=== PATIENT | male | born 1970 | race Caucasian/White ===

== ENCOUNTER 2020-04-29 10:23 | Inpatient (IN) | payer OTHER ==
[~2020-04-29] VITALS: Ht 203.2 cm; Wt 128.9 kg
[2020-04-29 10:43] LABS: BASOPHILS % (AUTO) 0.6 % (0.0-5.0); EOSINOPHILS % (AUTO) 2.2 % (0.0-8.0); HEMATOCRIT 48.2 % (42-54); MEAN CORPUSCULAR HEMOGLOBIN 30.2 pg (27.0-33.0); MEAN CORPUSCULAR HGB CONC 35.1 g/dL (32.0-36.0); MEAN CORPUSCULAR VOLUME 86.2 fL (79-99); MONOCYTES % (AUTO) 7.2 % (3.0-13.0); NEUTROPHILS % (AUTO) 70.9 % (40.0-77.0); PLATELET COUNT (AUTO) 254 K/uL (130-400); RED BLOOD CELL COUNT(AUTO) 5.59 MIL/uL (4.50-6.20); RED CELL DISTRIBUTION WIDTH 12.3 % (11.0-15.5); WHITE BLOOD COUNT (AUTO) 10.6 K/uL (4.8-10.8)
[2020-04-29] MEDS ORDERED: ASPIRIN 81MG CHEW TAB ONE (10:47)
[2020-04-29 11:06] LABS: APPEARANCE,URINE Clear (CLEAR); BILIRUBIN,URINE Negative (NEGATIVE); COLOR,URINE Yellow (YELLOW); GLUCOSE, URINE (UA) Negative (NEGATIVE); KETONES,URINE Negative (NEGATIVE); LEUKOCYTE ESTERASE ,URINE Negative (NEGATIVE); NITRATE,URINE Negative (NEGATIVE); OCCULT BLOOD,URINE Negative (NEGATIVE); PROTEIN,URINE Negative (NEGATIVE); UROBILINOGEN,URINE 0.2 mg/dL (0.2-1.0)
[2020-04-29 11:14] LABS: AMPHET/METH SCREEN,URINE NEGATIVE (NEGATIVE); BARBITURATE SCREEN, URINE NEGATIVE (NEGATIVE); BENZODIAZEPINES SCREEN,URINE NEGATIVE (NEGATIVE); CANNABINOID SCREEN,URINE NEGATIVE (NEGATIVE); COCAINE SCREEN,URINE NEGATIVE (NEGATIVE); OPIATE SCREEN,URINE NEGATIVE (NEGATIVE); PHENCYCLIDINE SCREEN,URINE NEGATIVE (NEGATIVE)
[2020-04-29 11:16] LABS: CREATININE 1.1 mg/dL (0.5-1.5); POTASSIUM 3.6 mmol/L (3.5-5.1)
[2020-04-29] MEDS ORDERED: LABETALOL 20MG SYG IV ONE (11:20)
[2020-04-29] MEDS ORDERED: NICARDIPINE 100 MG/100ML IV SCH ×2 (11:30)
[2020-04-29 12:35] LABS: CHOLESTEROL 166 mg/dL (<200); HDL CHOLESTEROL 103 mg/dL (29-71); LDL DIRECT 102 mg/dL (0-99); TRIGLYCERIDES 201 mg/dL (30-200)
[2020-04-29 15:13] LABS: INR 1.01 (0.85-1.15); PROTHROMBIN TIME 10.5 SEC (9.6-11.6)
[2020-04-29 15:16] LABS: PARTIAL THROMBOPLASTIN TIME 25.1 SEC (26.3-35.5)
[2020-04-29 16:23] LABS: HEMOGLOBIN A1C 5.6 % (4.0-6.0)
[2020-04-29 16:30] LABS: CHOLESTEROL 163 mg/dL (<200); HDL CHOLESTEROL 113 mg/dL (29-71); LDL DIRECT 97 mg/dL (0-99); TRIGLYCERIDES 197 mg/dL (30-200)
[2020-04-29] MEDS ORDERED: LIDOCAINE HCL-MPF 1% 2ML VIAL IV PRN (16:30)
[2020-04-29] MEDS ORDERED: POTASSIUM CHLORIDE 10% ELIXIR 20 MEQ/15 ML UDCUP PO PRN (16:30)
[2020-04-29] MEDS ORDERED: POTASSIUM CHLORIDE 20MEQ/100ML 100 ML IV PRN (16:30)
[2020-04-29] MEDS ORDERED: ATORVASTATIN 40 MG TABLET ONE (19:31)
[2020-04-29] MEDS: ATORVASTATIN 20 MG TABLET PO SCH (21:00)
[2020-04-29 22:10] VITALS: BP 186/129
[2020-04-29] MEDS ORDERED: ESCI-8 PO (22:22)
[2020-04-29] MEDS ORDERED: ZIAC5 PO (22:22)
[2020-04-30] VITALS (11 sets, daily range): BP systolic 178–204; BP diastolic 91–139
[2020-04-30] MEDS: KCL 20 MEQ ERTAB PO PRN ×3 (02:59→08:57)
[2020-04-30 05:07] LABS: BASOPHILS % (AUTO) 0.3 % (0.0-5.0); EOSINOPHILS % (AUTO) 2.2 % (0.0-8.0); HEMATOCRIT 46.3 % (42-54); LYMPHOCYTES % (AUTO) 16.6 % (21.0-51.0); MEAN CORPUSCULAR HEMOGLOBIN 30.1 pg (27.0-33.0); MEAN CORPUSCULAR VOLUME 85.9 fL (79-99); MONOCYTES % (AUTO) 7.5 % (3.0-13.0); NEUTROPHILS % (AUTO) 72.9 % (40.0-77.0); PLATELET COUNT (AUTO) 241 K/uL (130-400); RED BLOOD CELL COUNT(AUTO) 5.39 MIL/uL (4.50-6.20); RED CELL DISTRIBUTION WIDTH 12.3 % (11.0-15.5); WHITE BLOOD COUNT (AUTO) 11.5 K/uL (4.8-10.8)
[2020-04-30 05:56] LABS: ALBUMIN 3.6 g/dL (3.5-5.0); BILIRUBIN,TOTAL 0.8 mg/dL (0.2-1.0); CREATININE 1.1 mg/dL (0.5-1.5); MAGNESIUM 2.1 mg/dL (1.80-2.40); PHOSPHORUS 3.5 mg/dL (2.5-4.9); POTASSIUM 3.3 mmol/L (3.5-5.1)
[2020-04-30] MEDS: ASPIRIN 81MG CHEW TAB PO SCH (08:58)
[2020-04-30] MEDS: LABETALOL 20MG SYG IV PRN (09:18)
[2020-04-30] MEDS ORDERED: IOHEXOL-350 75 ML VIAL IV ONE (11:36)
[2020-04-30] MEDS: ATORVASTATIN 20 MG TABLET PO SCH (20:37)
[2020-05-01] VITALS (26 sets, daily range): BP systolic 166–209; BP diastolic 75–131
[2020-05-01] MEDS: ASPIRIN 81MG CHEW TAB PO SCH (08:24)
[2020-05-01 09:40] LABS: BASOPHILS % (AUTO) 0.4 % (0.0-5.0); EOSINOPHILS % (AUTO) 2.5 % (0.0-8.0); LYMPHOCYTES % (AUTO) 18.1 % (21.0-51.0); MEAN CORPUSCULAR HEMOGLOBIN 30.3 pg (27.0-33.0); MEAN CORPUSCULAR HGB CONC 34.3 g/dL (32.0-36.0); MEAN CORPUSCULAR VOLUME 88.1 fL (79-99); MONOCYTES % (AUTO) 8.1 % (3.0-13.0); NEUTROPHILS % (AUTO) 70.3 % (40.0-77.0); PLATELET COUNT (AUTO) 232 K/uL (130-400); RED BLOOD CELL COUNT(AUTO) 5.22 MIL/uL (4.50-6.20); RED CELL DISTRIBUTION WIDTH 12.6 % (11.0-15.5); WHITE BLOOD COUNT (AUTO) 11.4 K/uL (4.8-10.8)
[2020-05-01 09:47] LABS: CREATININE 1.1 mg/dL (0.5-1.5); POTASSIUM 4.1 mmol/L (3.5-5.1)
[2020-05-01] MEDS: CARVEDILOL 6.25 MG TABLET PO SCH ×2 (11:04→20:54)
[2020-05-01] MEDS: ATORVASTATIN 20 MG TABLET PO SCH (20:53)
[2020-05-02] VITALS (7 sets, daily range): BP systolic 152–189; BP diastolic 105–124
[2020-05-02 03:44] LABS: BASOPHILS % (AUTO) 0.5 % (0.0-5.0); HEMATOCRIT 45.2 % (42-54); LYMPHOCYTES % (AUTO) 18.5 % (21.0-51.0); MEAN CORPUSCULAR HEMOGLOBIN 29.8 pg (27.0-33.0); MEAN CORPUSCULAR HGB CONC 34.7 g/dL (32.0-36.0); MEAN CORPUSCULAR VOLUME 85.9 fL (79-99); NEUTROPHILS % (AUTO) 69.2 % (40.0-77.0); PLATELET COUNT (AUTO) 226 K/uL (130-400); RED BLOOD CELL COUNT(AUTO) 5.26 MIL/uL (4.50-6.20); RED CELL DISTRIBUTION WIDTH 12.1 % (11.0-15.5); WHITE BLOOD COUNT (AUTO) 11.9 K/uL (4.8-10.8)
[2020-05-02 03:52] LABS: CREATININE 1.1 mg/dL (0.5-1.5); MAGNESIUM 2.1 mg/dL (1.80-2.40); POTASSIUM 3.6 mmol/L (3.5-5.1)
[2020-05-02] MEDS: ASPIRIN 325MG EC TAB PO SCH (08:28)
[2020-05-02] MEDS: CARVEDILOL 6.25 MG TABLET PO SCH ×2 (08:29→22:23)
[2020-05-02] MEDS: LABETALOL 20MG SYG IV PRN (10:03)
[2020-05-02] MEDS ORDERED: AMLODIPINE 5 MG TAB PO SCH (11:00)
[2020-05-02] MEDS ORDERED: AMLODIPINE 5 MG TAB PO ONE (17:40)
[2020-05-02] MEDS: ATORVASTATIN 20 MG TABLET PO SCH (22:22)
[2020-05-03 03:47] VITALS: BP 134/74
[2020-05-03 08:59] VITALS: BP 186/117
[2020-05-03] MEDS ORDERED: LISINOPRIL 20 MG TABLET PO SCH (09:00)
[2020-05-03] MEDS: AMLODIPINE 5 MG TAB PO SCH (09:32)
[2020-05-03] MEDS: CARVEDILOL 6.25 MG TABLET PO SCH ×2 (09:32→21:07)
[2020-05-03] MEDS: ASPIRIN 325MG EC TAB PO SCH (09:32)
[2020-05-03 11:42] VITALS: BP 158/108
[2020-05-03] MEDS: ASPIRIN 81 MG EC TAB PO SCH (15:10)
[2020-05-03 16:00] VITALS: BP 181/121
[2020-05-03] MEDS: CLOPIDOGREL 75MG TAB PO SCH (17:21)
[2020-05-03] MEDS: LABETALOL 20MG SYG IV PRN (17:25)
[2020-05-03 20:18] VITALS: BP 166/93
[2020-05-03] MEDS: ATORVASTATIN 20 MG TABLET PO SCH (21:07)
[2020-05-03 23:55] VITALS: BP 163/107
[2020-05-04 03:42] VITALS: BP 142/103
[2020-05-04 05:47] LABS: HEMATOCRIT 44.2 % (42-54); MEAN CORPUSCULAR HEMOGLOBIN 30.1 pg (27.0-33.0); MEAN CORPUSCULAR HGB CONC 34.8 g/dL (32.0-36.0); MEAN CORPUSCULAR VOLUME 86.3 fL (79-99); RED BLOOD CELL COUNT(AUTO) 5.12 MIL/uL (4.50-6.20); RED CELL DISTRIBUTION WIDTH 12.4 % (11.0-15.5)
[2020-05-04 06:14] LABS: ALBUMIN 3.3 g/dL (3.5-5.0); BILIRUBIN,TOTAL 0.6 mg/dL (0.2-1.0); MAGNESIUM 2.1 mg/dL (1.80-2.40); POTASSIUM 3.6 mmol/L (3.5-5.1); TOTAL PROTEIN, SERUM 6.7 g/dL (6.0-8.3)
[2020-05-04] MEDS ORDERED: LISINOPRIL 20 MG TABLET PO SCH (09:00)
[2020-05-04] MEDS ORDERED: ACETAMINOPHEN 325 MG TAB ONE (09:01)
[2020-05-04] MEDS: ASPIRIN 81 MG EC TAB PO SCH (09:58)
[2020-05-04] MEDS: CLOPIDOGREL 75MG TAB PO SCH (09:58)
[2020-05-04] MEDS: CARVEDILOL 6.25 MG TABLET PO SCH (09:59)
[2020-05-04] MEDS: AMLODIPINE 5 MG TAB PO SCH (09:59)
[2020-05-04] MEDS ORDERED: ACETAMINOPHEN 325 MG TAB PO PRN (10:15)
[2020-05-04 10:23] VITALS: BP 153/109
[2020-05-04 13:08] VITALS: BP 141/93
[2020-05-04] MEDS ORDERED: ASPI-1197 PO (15:20)
[2020-05-04] MEDS ORDERED: CLOP75TA14 PO (15:20)
[2020-05-04] MEDS ORDERED: LISI40TA9 PO (15:20)
[2020-05-04] MEDS ORDERED: ATOR40TA69 PO (15:20)
[2020-05-04] MEDS ORDERED: AMLO10TA4 PO (15:20)
[2020-05-04] MEDS ORDERED: CARV6.25 PO (15:20)
[2020-05-04 16:52] VITALS: BP 166/112
[2020-05-05] MEDS ORDERED: HYDROCHLOROTHIAZIDE 25 MG TABLET PO SCH (09:00)
== END 2020-05-04 16:00 | disposition home or self-care (01) | DRG 65 ==
LOC: EDH 10:23 → EDHIP 12:04 → 3CH 21:46 → 4CH 21:50 → 2CH 04-30 17:34 → 2DH 05-01 15:45 → 4CH 05-02 21:32
PROVIDERS: ADMIT Internal Medicine; ATTEND Internal Medicine
DX: I63.81 Other cerebral infarction due to occlusion or stenosis of small artery (principal); I16.1 Hypertensive emergency; F32.9 Major depressive disorder, single episode, unspecified; R47.01 Aphasia; R47.1 Dysarthria and anarthria; I11.9 Hypertensive heart disease without heart failure; E87.6 Hypokalemia; Z20.822 Contact with and (suspected) exposure to COVID-19; E78.5 Hyperlipidemia, unspecified; E66.9 Obesity, unspecified; Z68.31 Body mass index [BMI] 31.0-31.9, adult; Z82.3 Family history of stroke
CPT/HCPCS: 36415; 70450; 70498; 70544; 70547; 70551; 71045; 80048; 80053; 80061; 80305; 81003; 82948; 83036; 83735; 84100; 84484; 85025; 85027; 85610; 85730; 87426; 92522; 92610; 93005; 93306; 93356; 93880; 97039; 99291; G0378; J3490; Q9967; U0003

== ENCOUNTER → 2022-12-03 | Outpatient (CLI) | payer BC ==
[~2022-12-03] MED LIST: AMLO10TA4 PO; ASPI-1197 PO; ATOR40TA69 PO; CARV6.25 PO; CLOP-31 PO; ESCI-8 PO; LISI40TA9 PO; ZIAC5 PO
== END | disposition home or self-care (01) ==
LOC: RAH 10:24
PROVIDERS: ATTEND Family Medicine
DX: S91.302D Unspecified open wound, left foot, subsequent encounter (principal); M19.072 Primary osteoarthritis, left ankle and foot; M79.672 Pain in left foot; R22.42 Localized swelling, mass and lump, left lower limb; X58.XXXD Exposure to other specified factors, subsequent encounter
CPT/HCPCS: 73718

== ENCOUNTER 2024-03-25 13:52 | Emergency (ER) | payer OTHER, BC ==
[~2024-03-25] VITALS: Ht 203.2 cm; Wt 136.1 kg
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
[2024-03-25 16:15] VITALS: BP 160/90; PULSE 60; RESP 16; TEMP 98.3; O2SAT 100
== END 2024-03-25 16:41 | disposition home or self-care (01) ==
LOC: EDH 13:52
DX: S09.8XXA Other specified injuries of head, initial encounter (principal); M54.2 Cervicalgia; I10 Essential (primary) hypertension; Z79.02 Long term (current) use of antithrombotics/antiplatelets; Z79.82 Long term (current) use of aspirin; Z79.899 Other long term (current) drug therapy; V89.2XXA Person injured in unspecified motor-vehicle accident, traffic, initial encounter; Y93.89 Activity, other specified; Y92.488 Other paved roadways as the place of occurrence of the external cause; Y99.8 Other external cause status
CPT/HCPCS: 70450; 72125; 99284